=== PATIENT | male | born 1970 | race Two or more races ===

== ENCOUNTER 2024-04-09 07:29 | Emergency (ER) | payer SELFPAY ==
[2024-04-09] MEDS: Sodium Chloride 0.9% 1,000 ML IV SCH (08:18)
[2024-04-09] MEDS: Morphine 4 MG/ML VIAL IVPUSH ONE (08:23)
[2024-04-09 08:56] LABS: BASOPHILS ABSOLUTE AUTO 0.1 x10-3/uL (0.0-0.3); BASOPHILS PERCENT AUTO 0.5 % (0.3-3.8); BLOOD UREA NITROGEN,BUN 15 mg/dL (7-18); BUN/CREATININE RATIO 13.6 (9-20); CALCIUM 8.1 mg/dL (8.6-10.2); CARBON DIOXIDE,CO2 22 mmol/L (21-32); CHLORIDE,CL 104 mmol/L (100-110); CREATININE 1.1 mg/dL (0.70-1.30); EOSINOPHILS ABSOLUTE AUTO 0.2 x10-3/uL (0.0-0.6); EOSINOPHILS PERCENT AUTO 1.9 % (0.1-6.8); ESTIMATED GFR 79 mL/min (>60); GLUCOSE RANDOM 126 mg/dL (80-116); HEMATOCRIT 45.9 % (38.3-50.1); HEMOGLOBIN 15.6 g/dL (12.9-17.7); LYMPHOCYTES PERCENT AUTO 7.8 % (15.8-45.3); MEAN CORPUSCULAR HEMOGLOBIN 30.9 pg (27.0-33.3); MEAN PLATELET VOLUME 9.5 fL (6.7-11.0); MONOCYTES ABSOLUTE AUTO 0.8 x10-3/uL (0.0-1.2); MONOCYTES PERCENT AUTO 6.3 % (5.5-15.2); NEUTROPHILS PERCENT AUTO 83.5 % (40.3-71.8); PLATELET COUNT,PLT 250 x10(3)uL (117-477); POTASSIUM,K 3.5 mmol/L (3.5-5.3); RED BLOOD CELL COUNT 5.04 x10(6)uL (3.90-5.90); RED CELL DISTRIBUTION WIDTH 14.6 % (12.4-15.0); SODIUM,NA 139 mmol/L (135-145); WHITE BLOOD CELL COUNT,WBC 13.2 x10-3/uL (3.2-10.1)
[2024-04-09 09:07] LABS: ALANINE AMINOTRANSFERASE,ALT 18 U/L (12-36); ALBUMIN 3.4 g/dL (3.5-5.2); ALKALINE PHOSPHATASE 97 IU/L (56-112); ASPARTATE AMNIOTRANSFERASE,AST 15 IU/L (5-25); BILIRUBIN TOTAL 0.5 mg/dL (0.1-1.3); PROTEIN TOTAL,TP 6.9 g/dL (6.0-8.0)
[2024-04-09 09:38] LABS: BILIRUBIN,URINE NEGATIVE (NEGATIVE); GLUCOSE,URINE NORMAL (NORMAL); KETONES,URINE NEGATIVE (NEGATIVE); LEUKOCYTE ESTERASE,URINE NEGATIVE (NEGATIVE); NITRITE,URINE NEGATIVE (NEGATIVE); OCCULT BLOOD,URINE NEGATIVE (NEGATIVE); PROTEIN,URINE NEGATIVE (NEGATIVE); UROBILINOGEN,URINE NORMAL (NEGATIVE)
[2024-04-09 09:45] LABS: APPEARANCE,URINE CLEAR (CLEAR); BACTERIA,URINE RARE (NS); COLOR,URINE YELLOW (YELLOW); MUCUS,URINE FEW (NS); RBC,URINE 0-5 (0-5); SQUAMOUS EPITHELIAL CELLS,UR RARE (NS,R,O); WBC,URINE 0-5 (0-5)
[2024-04-09] MEDS: Iopamidol 755 Mg/ML 100 ML Bottle IV SCH (10:05)
[2024-04-09] MEDS: Ketorolac 30 MG/ML SDV IVPUSH ONE (10:39)
== END 2024-04-09 10:18 | disposition home or self-care (01) ==
LOC: FB.ED 07:29
DX: K57.32 Diverticulitis of large intestine without perforation or abscess without bleeding (principal)
CPT/HCPCS: 36415; 74177; 80053; 81001; 82150; 83690; 85025; 96361; 96374; 96375; 99284-25; J1885; J2270; J7030; Q9967